=== PATIENT | male | born 1980 | race Two or more races ===

== ENCOUNTER 2024-08-12 13:10 | Outpatient (AMB) | payer MEDICAID, SELFPAY ==
[2024-08-12 13:16] VITALS: BP 135/83; PULSE 89; RESP 20; TEMP 35.1; O2SAT 93; BMI 58.3
--- NOTE | 2024-08-12 13:16 | PD.GSCLVISIT ---
[facility] - [facility] 08/12/24 13:16 Height 1.78 m Height Method Stated Weight 185.066 kg Weight Measurement Method Standing Scale BMI 58.3 BP 135/83 H Blood Pressure Source Automatic Cuff Blood Pressure Location Left Upper Arm Position Sitting Respiration 20 Pulse 89 Pulse Source Monitor Temp 95.2 F L Temp Source Temporal Artery Scan Pulse Oximetry (%) 93 L Oxygen Delivery Method Room Air Med/Allergies Allergies & Medications Allergies No Known Allergies Allergy (Verified 08/12/24 13:16) Medication Reconciliation hydrochlorothiazide 12.5 mg tablet 12.5 mg PO QDAY 30 days #30 tabs 03/25/24 [Rx Confirmed 08/12/24] lisinopril 40 mg tablet 40 mg PO QDAY 30 days #30 tabs 03/25/24 [Rx Confirmed 08/12/24] lovastatin 40 mg tablet 40 mg PO QDAY 03/25/24 [History Confirmed 08/12/24] metformin 500 mg tablet 500 mg PO BID 03/25/24 [History Confirmed 08/12/24] semaglutide 1 mg/dose (4 mg/3 mL) subcutaneous pen injector (Ozempic) 1 mg subcut Q7D 03/25/24 [History Confirmed 08/12/24] ciprofloxacin 500 mg/5 mL oral suspension 500 mg PO BID 04/04/24 [History Confirmed 08/12/24] ursodiol 300 mg capsule 300 mg PO TID #90 caps 08/12/24 [Rx] MA Intake Visit Data Collection New Patient or Established: Established Patient (seen at [facility] within 3 years) Seen by Clinical Staff ONLY (RN/MA): No 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 Pain Present Currently: No Pain scale:: 0 Fish Packer Required: No PCP or OBGYN visit in last 3 months: Yes Hx Now: No Do You Feel Safe at Home: Yes Authorities Contacted: N/A Smoking Status Smoking Status: Never smoker Immunization / Flu Flu Vaccine in the Last 12 Months: Yes Flu Vaccine Exclusion Criteria: Already Received Past Medical History Past Medical History NEUROLOGIC: Negative Neurological Disorders CARDIAC: Positive Hypertension; Negative Cardiac Disorders or Congestive Heart Failure RESPIRATORY: Negative Chronic Obstructive Pulmonary Disease (COPD) or Asthma GASTROINTESTINAL: Positive Obesity; Negative Gastrointestinal Disorders GENITOURINARY: Negative Genitourinary Disorders or Renal Disease ENT: Positive Cataracts ENDOCRINE: Positive Endocrine Disorders and Diabetes Mellitus Type 2; Negative Diabetes Mellitus Type 1 HEMATOLOGIC: Negative Blood Disorders or Sickle Cell Disease OTHER HISTORY: Negative Autoimmune Disease, Anesthesia Reactions, MRSA, Clostridium Difficile or Cancer Surgical History SURGICAL: Positive Eye Surgery; Negative Endocrine Surgery, Ear Surgery, Abdominal Surgery, Nephrectomy, Joint Replacement, Neurologic Surgery or Mastectomy Social History SMOKING STATUS: Smoking status: Never smoker ALCOHOL: Alcohol Intake: Never HOUSING: Housing: House LIVES WITH: Lives With: Spouse HPI HPI Narrative 44M with HTN, HLD, DMII, UNRULY, super morbid obesity treated conservatively in February for cholecystitis here for follow up. At last visit we agreed on observation as pt had had only minimal symptoms; he is here today as he had a similar episode of pain last month after eating a burrito containing pork. Pt reports pain was 5/10 in severity in the RUQ and improved with ibuprofen; he denies any nausea, fever or diarrhea. 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 As pt has rare symptoms and is exceedingly high risk for surgery, he would like to try ursodiol for symptom management. I also encouraged him to discuss bariatric surgery referral with his PMD Plan: Ursodiol TID Follow up in 2 mos (2) Morbid obesity with BMI of 50.0-59.9, adult: Status: Acute Office Procedures GNS Level of Care Nursing/Assessment Patient Status: Established Patient Nursing Assessment/Reassesment: Medication Reconciliation, Update PMH in EMR and Vital Signs Coordination of Care: Complex Care and Chronic Disease 1-5, Education Complex Pt/Fam, Consent,records obtained, informed consent, Results/Orders obtained and Staff clarify orders Established Patient Charge Established Patient Point Assignment: 95 Established Patient Point Charge: Level 3 (80-115) Patient Portal Questionaires Social History Living Situation History Housing: House Housing Other:: pt lives with Tobacco History Smoking Status: Never smoker Alcohol History Alcohol Intake: Never Substance Use History Substance Use: Marijuana Domestic Abuse History Do You Feel Safe at Home: Yes Review of Systems Report any current symptoms Only answer those that you have currently: Past Medical History Past Medical History Have you ever been diagnosed with any of the following: Cardiology Problems Congestive Heart Failure: No Hypertension: Yes Respiratory Problems Chronic Obstructive Pulmonary Disease (COPD): No Asthma: No Stomache/Intestinal Problems Obesity: Yes Genital/Urinary Problems Renal Disease: No Head,Eye,Nose,Throat Problems Cataracts: Yes Endocrine Problems Diabetes Mellitus Type 1: No Diabetes Mellitus Type 2: Yes Blood Problems Sickle Cell Disease: No Other Problems Autoimmune Disease: No Anesthesia Reactions: No MRSA: No Clostridium Difficile: No Cancer: No
== END 2024-08-12 13:42 | disposition home or self-care (01) ==
PROVIDERS: PCP Family Medicine; Referring Provider Family Medicine; Supervising Provider Surgery; Visit Provider Surgery
DX: K80.20 Calculus of gallbladder without cholecystitis without obstruction (principal); E66.01 Morbid (severe) obesity due to excess calories; Z68.43 Body mass index [BMI] 50.0-59.9, adult
CPT/HCPCS: 99213; G0463

== ENCOUNTER 2024-09-30 13:14 | Outpatient (AMB) | payer MEDICAID, SELFPAY ==
[2024-09-30 13:28] VITALS: BP 141/82; PULSE 8; RESP 18; TEMP 36.4; O2SAT 92; BMI 56.9
--- NOTE | 2024-09-30 13:28 | GSCOFFNT_ITS ---
[facility] - [facility] 09/30/24 13:28 Height 1.78 m Height Method Stated Weight 180.615 kg Weight Measurement Method Standing Scale BMI 56.9 BP 141/82 H Blood Pressure Source Automatic Cuff Blood Pressure Location Left Upper Arm Position Sitting Respiration 18 Pulse 8 L Pulse Source Monitor Temp 97.6 F Temp Source Temporal Artery Scan Pulse Oximetry (%) 92 L Oxygen Delivery Method Room Air Med/Allergies Allergies & Medications Allergies No Known Allergies Allergy (Verified 09/30/24 13:29) Medication Reconciliation hydrochlorothiazide 12.5 mg tablet 12.5 mg PO QDAY 30 days #30 tabs 03/25/24 [Rx Confirmed 09/30/24] lisinopril 40 mg tablet 40 mg PO QDAY 30 days #30 tabs 03/25/24 [Rx Confirmed 09/30/24] lovastatin 40 mg tablet 40 mg PO QDAY 03/25/24 [History Confirmed 09/30/24] metformin 500 mg tablet 500 mg PO BID 03/25/24 [History Confirmed 09/30/24] semaglutide 1 mg/dose (4 mg/3 mL) subcutaneous pen injector (Ozempic) 1 mg subcut Q7D 03/25/24 [History Confirmed 09/30/24] ciprofloxacin 500 mg/5 mL oral suspension 500 mg PO BID 04/04/24 [History Confirmed 09/30/24] ursodiol 300 mg capsule 300 mg PO TID #90 caps 08/12/24 [Rx Confirmed 09/30/24] MA Intake Visit Data Collection New Patient or Established: Established Patient (seen at [facility] within 3 years) Seen by Clinical Staff ONLY (RN/MA): No Reason for Visit:: GALLBLADDER F/U Pain Present Currently: No Pain scale:: 0 Tribal Delegate Required: No PCP or OBGYN visit in last 3 months: Yes Hx Now: No Do You Feel Safe at Home: Yes Authorities Contacted: N/A Smoking Status Smoking Status: Never smoker Immunization / Flu Flu Vaccine in the Last 12 Months: Yes Flu Vaccine Exclusion Criteria: Already Received Past Medical History Past Medical History NEUROLOGIC: Negative Neurological Disorders CARDIAC: Positive Hypertension; Negative Cardiac Disorders or Congestive Heart Failure RESPIRATORY: Negative Chronic Obstructive Pulmonary Disease (COPD) or Asthma GASTROINTESTINAL: Positive Obesity; Negative Gastrointestinal Disorders GENITOURINARY: Negative Genitourinary Disorders or Renal Disease ENT: Positive Cataracts ENDOCRINE: Positive Endocrine Disorders and Diabetes Mellitus Type 2; Negative Diabetes Mellitus Type 1 HEMATOLOGIC: Negative Blood Disorders or Sickle Cell Disease OTHER HISTORY: Negative Autoimmune Disease, Anesthesia Reactions, MRSA, Clostridium Difficile or Cancer Surgical History SURGICAL: Positive Eye Surgery; Negative Endocrine Surgery, Ear Surgery, Abdominal Surgery, Nephrectomy, Joint Replacement, Neurologic Surgery or Mastectomy Social History SMOKING STATUS: Smoking status: Never smoker ALCOHOL: Alcohol Intake: Never HOUSING: Housing: House LIVES WITH: Lives With: Spouse HPI HPI Narrative 44M with HTN, HLD, DMII, UNRULY, super morbid obesity treated conservatively last year for cholecystitis here for follow up. At previous visit pt reported having an episode of pain after eating a pork burrito; he requested to try ursodiol and has been taking it since. He denies any further episodes of pain and denies any side effects from ursodiol. He also reports he is walking a lot and watching his diet so he has lost several lbs since last visit ROS Review of Systems Systems Reviewed: All systems reviewed, normal except as documented Objective/Exam General General Appearance: alert, cooperative and well groomed Resp Respiratory exam: Absent respiratory distress Assessment & Plan Diagnosis / Problem List (1) Symptomatic cholelithiasis: Status: Acute Assessment & Plan: 44M with HTN, HLD, DMII, UNRULY, super morbid obesity treated conservatively last year for cholecystitis here for follow up, doing well overall Office Procedures GNS Level of Care Nursing/Assessment Patient Status: Established Patient Nursing Assessment/Reassesment: Medication Reconciliation, Update PMH in EMR and Vital Signs Coordination of Care: Complex Care and Chronic Disease 1-5, Consent,records obtained, informed consent, Education Simp Pt/Fam, Results/Orders obtained and Staff clarify orders Established Patient Charge Established Patient Point Assignment: 90 Established Patient Point Charge: EP Level 3 (80-115) Patient Portal Questionaires Social History Living Situation History Housing: House Housing Other:: pt lives with Tobacco History Smoking Status: Never smoker Alcohol History Alcohol Intake: Never Substance Use History Substance Use: Marijuana Domestic Abuse History Do You Feel Safe at Home: Yes Review of Systems Report any current symptoms Only answer those that you have currently: Past Medical History Past Medical History Have you ever been diagnosed with any of the following: Cardiology Problems Congestive Heart Failure: No Hypertension: Yes Respiratory Problems Chronic Obstructive Pulmonary Disease (COPD): No Asthma: No Stomache/Intestinal Problems Obesity: Yes Genital/Urinary Problems Renal Disease: No Head,Eye,Nose,Throat Problems Cataracts: Yes Endocrine Problems Diabetes Mellitus Type 1: No Diabetes Mellitus Type 2: Yes Blood Problems Sickle Cell Disease: No Other Problems Autoimmune Disease: No Anesthesia Reactions: No MRSA: No Clostridium Difficile: No Cancer: No
== END 2024-09-30 13:56 | disposition home or self-care (01) ==
LOC: HODSRG 13:14
PROVIDERS: PCP Family Medicine; Referring Provider Family Medicine; Supervising Provider Surgery; Visit Provider Surgery
DX: Z09 Encounter for follow-up examination after completed treatment for conditions other than malignant neoplasm (principal); K80.20 Calculus of gallbladder without cholecystitis without obstruction; E66.01 Morbid (severe) obesity due to excess calories; Z68.43 Body mass index [BMI] 50.0-59.9, adult
CPT/HCPCS: 99213; G0463